=== PATIENT | female | born 1980 | race Caucasian/White ===

== ENCOUNTER → 2018-11-10 | Outpatient (REF) | payer BC ==
[2018-11-16 00:07] LABS: HPV HYBRID CAPTURE II Negative (Negative)
== END ==
LOC: M SFHCWAGY 14:05
PROVIDERS: ATTEND Nurse Practitioner Family
DX: Z12.4 Encounter for screening for malignant neoplasm of cervix (principal)
CPT/HCPCS: 87624; G0123